=== PATIENT | female | born 1930 | race Caucasian/White ===

== ENCOUNTER 2017-04-19 12:26 | Inpatient (IN) | payer MEDICARE ==
[2017-04-19 13:01] LABS: #Eosinphils 0.2 thou/uL (0.0-0.7); #Lymphocytes 1.1 thou/uL (1.20-3.40); #Monocytes 0.7 thou/uL (0.11-0.59); #Neutrophils 3.7 thou/uL (1.40-6.50); %Basophils 0.2 % (0.0-1.0); %Eosinophils 3.5 % (0.0-10.0); %Lymphocytes 19.7 % (21.0-51.0); %Monocytes 12.3 % (0.0-10.0); Hematocrit 41.1 % (36.0-47.0); Mean Platelet Volume 6.7 fL (7.4-10.4); Red Blood Cell (RBC) Count 4.35 mill/uL (4.20-5.40); White Blood Cell (WBC) Count 5.7 thou/uL (4.8-10.8)
--- NOTE | 2017-04-19 13:07 | RAD ---
AP VIEW CHEST: INDICATIONS: History of atrial fibrillation, hypertension, and CHF, now with cough. COMPARISON: 08/31/2016 FINDINGS: There is moderate cardiomegaly. The pulmonary vasculature is normal. No air space consolidation or pleural effusion is evident. Chronic osseous changes are similar. IMPRESSION: Stable cardiomegaly. POS: [facility]
[2017-04-19 13:35] LABS: Troponin I Less than 0.010 ng/mL (< 0.028)
[2017-04-19 13:40] LABS: ALT (SGPT) 12 U/L (8-55); AST (SGOT) 18 U/L (5-34); Alkaline Phosphatase 100 U/L (40-150); Anion Gap 11 mmol/L (10-20); BUN (Urea Nitrogen) 14 mg/dL (9.8-20.1); Bilirubin, Total 0.7 mg/dL (0.2-1.2); CK (CPK) 80 U/L (29-168); Calc. Creatinine Clearance 0 mL/min (70-130); Calcium 9.4 mg/dL (7.8-10.44); Carbon Dioxide 26 mmol/L (23-31); Chloride 99 mmol/L (98-107); Estimated GFR-MDRD 57; Globulin 3.2 g/dL (2.4-3.5); Lipase 27 U/L (8-78); Protein, Total 7.2 g/dL (6.0-8.3)
[2017-04-19] MEDS ORDERED: Bisacodyl 5 MG TAB PO PRN (16:03)
[2017-04-19] MEDS ORDERED: Ondansetron HCl/PF 4 MG/2 ML Vial IVP PRN (16:03)
[2017-04-19] MEDS ORDERED: Acetaminophen 325 MG TAB PO PRN (16:03)
--- NOTE | 2017-04-19 16:04 | HP ---
CHIEF COMPLAINT: Palpitations. HISTORY OF PRESENT ILLNESS: This is an 86-year-old pleasant lady, who was apparently in usual state of health, who came into the hospital because of a racing heartbeat. The patient reports that afte r she took her morning medications, her heart rate heart began to race and the EMS reported highest heart rate of 150. She reports she got dizzy and denies any shortness of breath. Here in the ER, h er heart rate goes up and is jumping between 140s, gives some PVCs and then gets sinus joe and the n goes up again. She has been admitted for evaluation and treatment of this. She is a patient of Fortino Baez, who was cardioverted her on 02/11/2017. Right now, she denies any chest pain or short ness of breath. PAST MEDICAL HISTORY: Significant for atrial fibrillation, congestive heart failure, GERD, migraine headaches, glaucoma and history of esophageal tear. PAST SURGICAL HISTORY: The patient's surgical history significant for bilateral knee replacements, hemorrhoidectomy, craniectomy, neurectomy, appendectomy, cholecystectomy, , hysterectomy, c ardiac ablation in 10/2015 and cardioversion earlier this year. SOCIAL HISTORY: Denies alcohol, tobacco or drug use. PSYCHIATRIC HISTORY: Includes anxiety and depression. FAMILY HISTORY: Significant for myocardial infarction in mother. ALLERGIES: CODEINE, DEMEROL, DEMECLOCYCLINE, MEPERIDINE, PENICILLIN, SULFA, and TRIAMTERENE. CURRENT MEDICATIONS: Include Protonix, buspirone, Ambien, Eliquis, losartan, metoprolol, amlodipine and some eyedrops for glaucoma. REVIEW OF SYSTEMS: Significant for dizziness and palpitations, otherwise no fever, no chills, no he adache, no eye pain, no hearing loss, no latencies. No cough, no diarrhea, dysuria or polyuria. No memory or mood changes. No neck pain. PHYSICAL EXAMINATION: VITAL SIGNS: The patient's blood pressure is 153/70, pulse is 52, respirations 16, temperature 98.6 . GENERAL: The patient is lying in bed, in no apparent respiratory distress. HEENT: Atraumatic, normocephalic. Pupils equally round, react to light. Extraocular movements are intact. Mucous membranes moist. NECK: Supple. No JVD. CHEST: Breath sounds. There are no rales or rhonchi. HEART: S1, S2 normal, irregularly irregular rhythm. ABDOMEN: Soft, nontender. EXTREMITIES: No cyanosis, clubbing, or edema. Distal pulses present. NEUROLOGIC: Alert, awake, oriented. No cranial deficits. No sensorimotor deficits. SKIN: Warm and dry. LABORATORY DATA: Lipase is 27, CK is 80. Sodium is 132, potassium is 4.1, creatinine is 0.94, gluc ose is 96, and bilirubin is 0.7. BNP is 186.8. Troponin is negative. Chest x-ray shows cardiomega ly without acute changes. ASSESSMENT AND PLAN: 1. Atrial fibrillation with rapid ventricular response. Cardiology has been consulted. We will re sume home medications and Eliquis 5 mg p.o. b.i.d. for now. We will admit the patient to telemetry and monitor her heartbeat. We will follow Cardiology plan and trend troponins. 2. Hyponatremia. We will monitor that this hospital stay. 3. Gastroesophageal reflux disease, appears to be stable. 4. Hypertension. We will continue home medications. 5. Deep thrombosis prophylaxis with Eliquis and sequential compression devices. I will work with Cardiology and further caring for the patient.
[2017-04-19 17:08] LABS: Bilirubin Negative (Negative); Blood, Urine Trace (Negative); Glucose, Urine (Dipstick) Negative (Negative); Ketone, Urine Negative (Negative); Nitrite Negative (Negative); Protein, Urine (Dipstick) Negative (Neg-Trace); Urobilinogen 0.2 mg/dL (0.2-1.0)
[2017-04-19 17:13] LABS: Bacteria/HPF None Seen HPF (None Seen); Hyaline Casts/LPF 0-3 HYALINE CAST LPF (0-3 Hyaline); RBC/HPF 0-3 HPF (0-3); Squamous Epithelial None Seen HPF (0-3); WBC/HPF None Seen HPF (0-3)
[2017-04-19] MEDS ORDERED: Zolpidem Tartrate 5 MG TAB PO PRN (18:22)
[2017-04-19] MEDS ORDERED: ALPRAZolam 0.25 MG TAB PO PRN (18:22)
[2017-04-19] MEDS ORDERED: Famotidine 20 MG TAB PO SCH (21:00)
[2017-04-19] MEDS ORDERED: Dronedarone HCl 400 MG TAB PO SCH (21:00)
[2017-04-19] MEDS ORDERED: Apixaban 5 MG TAB PO SCH (21:00)
[2017-04-19] MEDS: Apixaban 5 MG TAB PO SCH (21:17)
[2017-04-19] MEDS: Docusate 100 MG CAP PO SCH (21:19)
[2017-04-19] MEDS: busPIRone HCl 10 MG TAB PO SCH (21:19)
--- NOTE | 2017-04-19 23:19 | CON ---
DATE OF CONSULTATION: 04/19/2017 HISTORY: Ariella Parmar is an 86-year-old white female with history of paroxysmal atrial fibrillation. She states that she has undergone ablation in the past. She underwent cardioversion in 09/2016; however, did not convert. She also underwent electrical cardioversion on 02/11/2017, converted to sinus rhythm. She was seen back in the office on 02/24/2017 and apparently continued to maintain sinus rhythm. She lives at [facility] in [place]. States she had onset of a very rapid heartbeat with some shortness of breath. EMS were called and she was brought directly to [place]. In the emergency room, she would have episodes of atrial fibrillation that would convert back to sinus rhythm. At the present time, she is in atrial fibrillation with rate of approximately 120 per minute. She is extremely nervous and anxious. PAST MEDICAL HISTORY: Atrial fibrillation, GERD, congestive heart failure. OPERATIONS: Include ablation in 10/2015, bilateral knee replacements, hemorrhoidectomy, appendectomy, cholecystectomy, , hysterectomy. SOCIAL HISTORY: She does not smoke or drink. REVIEW OF SYSTEMS: A 12-point review of systems otherwise unremarkable. PHYSICAL EXAMINATION: VITAL SIGNS: Blood pressure 170/73, pulse of 112. HEENT: PERRL. NECK: Supple. CHEST: Clear. CARDIAC: S1 and S2 are normal without any S3, S4 or murmurs. ABDOMEN: Normal bowel sounds without tenderness or organomegaly. EXTREMITIES: Revealed no clubbing, cyanosis or edema. NEUROLOGIC: Grossly intact. LABORATORY DATA: EKG show sinus rhythm, atrial fibrillation, converting back to sinus rhythm on one of the EKGs. CBC is unremarkable. Sodium 132, potassium 4.1, chloride 99, carbon dioxide 26, BUN 14, creatinine 0.94. Cardiac enzymes are unremarkable. BNP 186.8. Urinalysis is unremarkable. IMPRESSION: 1. Atrial fibrillation with rapid ventricular response. In the computer, it states that she is taking Multaq 800 mg b.i.d.; however, the patient states she takes a total of 800 per day, i.e. 400 b.i.d. This order will be corrected. 2. Hyponatremia. 3. History of heart failure. 4. Gastroesophageal reflux disease. 5. Hypertension. PLAN: The patient will be placed back on Multaq 400 mg b.i.d. She will be started on intravenous Cardizem given 10 mg bolus followed by 5 mg per hour drip to control her rate. Also, with her age of 86 and her weight of 120, I would keep her Eliquis 2.5 b.i.d. Electrophysiology will be consulted in the morning and she certainly may need to undergo pacemaker placement and AV node ablation if she cannot be controlled otherwise. KANED
[2017-04-20 05:34] LABS: #Eosinphils 0.2 thou/uL (0.0-0.7); #Lymphocytes 1.1 thou/uL (1.20-3.40); #Monocytes 0.7 thou/uL (0.11-0.59); #Neutrophils 3.1 thou/uL (1.40-6.50); %Basophils 0.5 % (0.0-1.0); %Eosinophils 4.8 % (0.0-10.0); %Lymphocytes 20.8 % (21.0-51.0); Hematocrit 37.8 % (36.0-47.0); Mean Platelet Volume 6.8 fL (7.4-10.4); Red Blood Cell (RBC) Count 4.01 mill/uL (4.20-5.40); White Blood Cell (WBC) Count 5.1 thou/uL (4.8-10.8)
[2017-04-20 05:48] LABS: Anion Gap 10 mmol/L (10-20); BUN (Urea Nitrogen) 13 mg/dL (9.8-20.1); Calc. Creatinine Clearance 45 mL/min (70-130); Calcium 8.9 mg/dL (7.8-10.44); Carbon Dioxide 26 mmol/L (23-31); Chloride 101 mmol/L (98-107); Estimated GFR-MDRD 67
[2017-04-20 08:39] LABS: Magnesium 1.9 mg/dL (1.6-2.6); Phosphorus 3.8 mg/dL (2.3-4.7)
[2017-04-20] MEDS: Apixaban 5 MG TAB PO SCH (10:31)
[2017-04-20] MEDS: Losartan Potassium 25 MG TAB PO SCH (10:31)
[2017-04-20] MEDS: busPIRone HCl 10 MG TAB PO SCH ×2 (10:32→21:25)
[2017-04-20] MEDS: Docusate 100 MG CAP PO SCH (10:32)
[2017-04-20] MEDS: Dronedarone HCl 400 MG TAB PO SCH ×2 (10:32→16:51)
--- NOTE | 2017-04-20 18:44 | PDOC.PN ---
- Subjective Encounter Start Date: 04/20/17 Encounter Start Time: 10:30 Patient seen and examined. No new complaints. No overnight events - Objective MAR Reviewed: Yes Vital Signs & Weight: Vital Signs (12 hours) Temp Pulse Resp BP Pulse Ox 04/20/17 16:00 98.2 F 65 18 172/75 H 04/20/17 08:00 98.1 F 65 17 164/70 H 93 L I&O: 04/19/17 04/20/17 04/21/17 06:59 06:59 06:59 Intake Total 240 Balance 240 Result Diagrams: 04/20/17 05:19 04/20/17 05:19 EKG Reviewed by me: Yes (Tele SR) Phys Exam - Physical Examination Constitutional: NAD Respiratory: no wheezing, no rhonchi Cardiovascular: RRR, no rub Gastrointestinal: soft Musculoskeletal: no edema Neurological: moves all 4 limbs Dx/Plan (1) Atrial fibrillation with RVR Code(s): I48.91 - UNSPECIFIED ATRIAL FIBRILLATION Status: Acute (2) Hyponatremia Code(s): E87.1 - HYPO-OSMOLALITY AND HYPONATREMIA Status: Acute (3) CKD (chronic kidney disease) stage 2, GFR 60-89 ml/min Code(s): N18.2 - CHRONIC KIDNEY DISEASE, STAGE 2 (MILD) Status: Acute (4) GERD (gastroesophageal reflux disease) Code(s): K21.9 - GASTRO-ESOPHAGEAL REFLUX DISEASE WITHOUT ESOPHAGITIS Status: Chronic - Plan cont current plan of care, DVT proph w/SCDs * Cardiology/EP following * Pacemaker placement * On Multaq * Eliquis dose reduced * Cont to monitor * Off Cardizem drip Review of Systems - Review of Systems Constitutional: negative: Fever, Chills, Sweats, Weakness, Malaise, Other Respiratory: negative: Cough, Dry, Shortness of Breath, Hemoptysis, SOB with Excertion, Pleuritic Pain, Sputum, Wheezing Cardiovascular: negative: Chest Pain, Palpitations, Orthopnea, Paroxysmal Noc. Dyspnea, Edema, Light Headedness, Other Gastrointestinal: negative: Nausea, Vomiting, Abdominal Pain, Diarrhea, Constipation, Melena, Hematochezia, Other - Medications/Allergies Allergies/Adverse Reactions: Allergies Allergy/AdvReac Type Severity Reaction Status Date / Time codeine Allergy Verified 02/05/17 12:36 doxycycline Allergy Verified 02/05/17 12:36 ibuprofen [From Motrin] Allergy Verified 02/05/17 12:36 meperidine HCl [From Demerol] Allergy Verified 04/19/17 16:18 Penicillins Allergy Verified 02/05/17 12:36 Sulfa (Sulfonamide Allergy Verified 02/05/17 12:36 Antibiotics) sulfamethoxazole Allergy Verified 02/05/17 12:36 [From Bactrim] triamterene Allergy Verified 02/05/17 12:36 trimethoprim [From Bactrim] Allergy Verified 02/05/17 12:36 Medications: Current Medications Acetaminophen (Tylenol) 650 mg PO Q4H PRN PRN Reason: Headache/Fever or Pain Bisacodyl (Dulcolax) 10 mg PO DAILYPRN PRN PRN Reason: Constipation Buspirone HCl (Buspar) 5 mg PO BID [facility] Last Admin: 04/20/17 10:32 Dose: 5 mg Diltiazem HCl (Cardizem) 30 mg PO Q6H PRN PRN Reason: HR >120 sustained Dronedarone (Multaq) 400 mg PO BID-[facility] Last Admin: 04/20/17 16:51 Dose: 400 mg Hydralazine HCl (Apresoline) 10 mg SLOW IVP Q4H PRN PRN Reason: Systolic BP > 180 Last Admin: 04/19/17 16:42 Dose: 10 mg Losartan Potassium (Cozaar) 50 mg PO DAILY [facility] Last Admin: 04/20/17 10:31 Dose: 50 mg Metoprolol Succinate (Toprol Xl) 25 mg PO DAILY [facility] Last Admin: 04/20/17 10:31 Dose: 25 mg Ondansetron HCl (Zofran) 4 mg IVP Q6H PRN PRN Reason: Nausea/Vomiting Pantoprazole Sodium (Protonix) 40 mg PO DAILY [facility] Last Admin: 04/20/17 10:35 Dose: Not Given Sodium Chloride (Flush - Normal Saline) 10 ml IVF Q12HR [facility] Last Admin: 04/20/17 10:35 Dose: 10 ml Sodium Chloride (Flush - Normal Saline) 10 ml IVF PRN PRN PRN Reason: Saline Flush Zolpidem Tartrate (Ambien) 5 mg PO HS [facility]
[2017-04-20] MEDS: Zolpidem Tartrate 5 MG TAB PO SCH (21:26)
[2017-04-21 07:03] VITALS: BMI 21.0
[2017-04-21] MEDS ORDERED: cloNIDine HCl 0.1 MG TAB PO PRN (08:32)
[2017-04-21] MEDS: Losartan Potassium 25 MG TAB PO SCH (10:00)
[2017-04-21] MEDS: busPIRone HCl 10 MG TAB PO SCH ×2 (10:00→22:10)
[2017-04-21] MEDS: Dronedarone HCl 400 MG TAB PO SCH ×2 (10:00→16:39)
[2017-04-21] MEDS ORDERED: Iopamidol 370 76% 50 ML VIAL FS ONE (11:55)
--- NOTE | 2017-04-21 12:49 | PDOC.PN ---
- Subjective Encounter Start Date: 04/21/17 Encounter Start Time: 09:30 Patient seen and examined. No new complaints. No overnight events - Objective MAR Reviewed: Yes Vital Signs & Weight: Vital Signs (12 hours) Temp Pulse Resp BP Pulse Ox 04/21/17 11:30 98.4 F 76 20 170/82 H 98 04/21/17 08:08 98.3 F 78 19 162/73 H 97 04/21/17 04:00 98.3 F 74 16 165/73 H 95 Weight Weight 119 lb I&O: 04/20/17 04/21/17 04/22/17 06:59 06:59 06:59 Intake Total 240 1100 Output Total 1250 Balance 240 -150 Result Diagrams: 04/20/17 05:19 04/20/17 05:19 EKG Reviewed by me: Yes (Tele SR) Phys Exam - Physical Examination Constitutional: NAD Respiratory: no wheezing, no rhonchi Cardiovascular: RRR, no rub Gastrointestinal: soft, non-tender, positive bowel sounds Musculoskeletal: no edema Neurological: moves all 4 limbs Psychiatric: A&O x 3 Dx/Plan (1) Atrial fibrillation with RVR Code(s): I48.91 - UNSPECIFIED ATRIAL FIBRILLATION Status: Acute (2) Hyponatremia Code(s): E87.1 - HYPO-OSMOLALITY AND HYPONATREMIA Status: Acute (3) CKD (chronic kidney disease) stage 2, GFR 60-89 ml/min Code(s): N18.2 - CHRONIC KIDNEY DISEASE, STAGE 2 (MILD) Status: Acute (4) GERD (gastroesophageal reflux disease) Code(s): K21.9 - GASTRO-ESOPHAGEAL REFLUX DISEASE WITHOUT ESOPHAGITIS Status: Chronic - Plan cont current plan of care * Pacemaker today * Cont to monitor * Can dc later today if ok with Cardiology * Cont current meds as below * On Anticoag/Multaq * Resume Amlodipine Review of Systems - Review of Systems Respiratory: negative: Cough, Dry, Shortness of Breath, Hemoptysis, SOB with Excertion, Pleuritic Pain, Sputum, Wheezing Cardiovascular: negative: Chest Pain, Palpitations, Orthopnea, Paroxysmal Noc. Dyspnea, Edema, Light Headedness, Other Gastrointestinal: negative: Nausea, Vomiting, Abdominal Pain, Diarrhea, Constipation, Melena, Hematochezia, Other - Medications/Allergies Allergies/Adverse Reactions: Allergies Allergy/AdvReac Type Severity Reaction Status Date / Time codeine Allergy Verified 02/05/17 12:36 doxycycline Allergy Verified 02/05/17 12:36 ibuprofen [From Motrin] Allergy Verified 02/05/17 12:36 meperidine HCl [From Demerol] Allergy Verified 04/19/17 16:18 Penicillins Allergy Verified 02/05/17 12:36 Sulfa (Sulfonamide Allergy Verified 02/05/17 12:36 Antibiotics) sulfamethoxazole Allergy Verified 02/05/17 12:36 [From Bactrim] triamterene Allergy Verified 02/05/17 12:36 trimethoprim [From Bactrim] Allergy Verified 02/05/17 12:36 hydralazine Allergy Uncoded 04/21/17 08:20 Medications: Current Medications Acetaminophen (Tylenol) 650 mg PO Q4H PRN PRN Reason: Headache/Fever or Pain Bisacodyl (Dulcolax) 10 mg PO DAILYPRN PRN PRN Reason: Constipation Buspirone HCl (Buspar) 5 mg PO BID [facility] Last Admin: 04/21/17 10:00 Dose: 5 mg Cefazolin Sodium (Ancef) 2 gm SLOW IVP WILLCALL [facility] Stop: 04/21/17 16:00 Clonidine HCl (Catapres) 0.1 mg PO Q4H PRN PRN Reason: Systolic BP > 180 Diltiazem HCl (Cardizem) 30 mg PO Q6H PRN PRN Reason: HR >120 sustained Dronedarone (Multaq) 400 mg PO BID-[facility] Last Admin: 04/21/17 10:00 Dose: 400 mg Losartan Potassium (Cozaar) 50 mg PO DAILY [facility] Last Admin: 04/21/17 10:00 Dose: 50 mg Metoprolol Succinate (Toprol Xl) 25 mg PO DAILY [facility] Last Admin: 04/21/17 10:00 Dose: 25 mg Ondansetron HCl (Zofran) 4 mg IVP Q6H PRN PRN Reason: Nausea/Vomiting Pantoprazole Sodium (Protonix) 40 mg PO DAILY [facility] Last Admin: 04/21/17 10:00 Dose: 40 mg Sodium Chloride (Flush - Normal Saline) 10 ml IVF Q12HR [facility] Last Admin: 04/21/17 10:00 Dose: 10 ml Sodium Chloride (Flush - Normal Saline) 10 ml IVF PRN PRN PRN Reason: Saline Flush Zolpidem Tartrate (Ambien) 5 mg PO HS [facility] Last Admin: 04/20/17 21:26 Dose: 5 mg
[2017-04-21] MEDS ORDERED: Clindamycin/D5W 600 mg/50 ml Premix Bag ONE (13:38)
[2017-04-21] MEDS ORDERED: Levofloxacin 500 mg/D5W 100 ml Premix Bag ONE (13:38)
[2017-04-21] MEDS ORDERED: Fentanyl 100 MCG/2 ML VIAL ONE (14:09)
[2017-04-21] MEDS ORDERED: Lidocaine 1% (PF) 30 ML VIAL ONE (14:13)
[2017-04-21] MEDS ORDERED: HYDROcodone/Acetaminophen 5/325 mg Tablet PO PRN ×2 (20:30)
[2017-04-21] MEDS ORDERED: Acetaminophen/Codeine 30-300mg Tablet PO PRN ×2 (20:30)
--- NOTE | 2017-04-21 21:30 | PRG ---
DATE OF SERVICE: 04/21/2017 ELECTROPHYSIOLOGY FOLLOWUP NOTE REFERRING PHYSICIAN: Joby Baez M.D. SUBJECTIVE: Mrs. Parmar is doing fair today. She still has occasional palpitation. OBJECTIVE: VITAL SIGNS: Blood pressure is 164/70, heart rate 65, respirations 17, and temperature 98.1 degrees Fahrenheit. GENERAL: Alert and oriented woman, in no apparent distress. NECK: Supple. Jugular veins not distended. CHEST: Coarse without crackles. CARDIOVASCULAR: Heart sounds are regular to rate and rhythm. No murmur or gallop. ABDOMEN: Benign. Bowel sounds positive. EXTREMITIES: Lower extremities without edema, clubbing or cyanosis. DATABASE: Telemetry strips today reveals sinus rhythm with occasional PAT runs. LABORATORY DATA: No new laboratory data noted. ASSESSMENT AND PLAN: Mrs. Parmar is a pleasant 86-year-old woman with prior history of atrial fibri llation, repeat left atrial ablation procedures, currently on anticoagulation. At this point, she d eclines further advance ablations and considers a pacemaker implantation. We will implant and advic e pacemaker for her and we will increase her atrioventricular wiliam blocking agents afterwards. ___ __ after pacemaker maturation, we will plan to . If that fails to control her symptoms, we wi ll perform the atrioventricular wiliam ablation. For now, continue Dontataq as well.
--- NOTE | 2017-04-21 21:45 | CON ---
DATE OF CONSULTATION: 04/20/2017 ELECTROPHYSIOLOGY CONSULTATION REPORT REFERRING PHYSICIAN: Dr. Baez I am seeing Mr. Parmar at our [facility] as an electrophysiology independent crop consultant. Her problems are: 1. Recurrent atrial arrhythmias. A. Prior history of left atrial ablation, most recently 10/2015. B. Recurrent atrial fibrillation requiring Multaq initiation and recurrent atrial tachycardia despit e from the current admission. 2. Eliquis for cerebrovascular accident prophylaxis. 3. History of hypertension. 4. History of normal LVEF by echo in 10/2015 with LVEF 50-55%, moderate mitral regurgitation and ao rtic insufficiency. ALLERGIES: CODEINE, DOYCYCLINE, IBUPROFEN, MEPERIDINE, PENICILLINS. MEDICATIONS AT HOME: Included buspirone, pantoprazole, zolpidem, Tylenol, apixaban, metoprolol, aml odipine, losartan, dronedarone, potassium chloride. HISTORY OF PRESENT ILLNESS: Ms. Parmar is here due to recurrent palpitations. She was found to hav e shortness of breath. She was noted to have atrial fibrillation with rapid rate, but paroxysms onl y and then she converted back to sinus rhythm intermittently. She was nervous and anxious with this . Currently, she denies chest pain, no fever, chills or cough. No stroke-like symptoms. No neurologi laly deficits. No PND or orthopnea. REVIEW OF SYSTEMS: Rest of 12-point system is unremarkable. PHYSICAL EXAMINATION: VITAL SIGNS: Blood pressure is 164/70, heart rate 65, respirations 17, temperature 98.1 degrees Fah renheit. GENERAL: Alert and oriented woman in no apparent distress. NECK: Supple. Jugular veins not distended. CHEST: Coarse without crackles. CARDIOVASCULAR: Heart sounds are irregular. S1 and S2 are variable. No murmur or gallop. ABDOMEN: Benign. Bowel sounds positive. EXTREMITIES: Lower extremities without edema, clubbing or cyanosis. DATABASE: EKGs reviewed. Initial EKGs reveal runs of PAC's, atrial tachycardia runs are seen, ensu ring sinus beats or so noted. Subsequent EKG on 04/19 is with sinus rhythm with normal AV conductio n. QTC is 440 milliseconds. EKG just 20 minutes later PATs. LABORATORY DATA: White blood cell count 5.1, hemoglobin 12.5, platelet count is 198. Sodium 133, p otassium 3.5, BUN is 13, creatinine 0.81. AST, ALT is 18 and 12. BNP is 186. ASSESSMENT AND PLAN: Ms. Parmar is an 86-year-old woman with prior history of left atrial ablation procedures. She underwent pulmonary venous isolation procedure and left atrial ablation procedure _ ____ in 10/2015. She had recurrent episodes of atrial tachyarrhythmias and we increased her Multaq recently. Despite she came to the ER with palpitations. She currently well anticoagulated with Maryann eric. Her rhythm is again sinus rhythm and runs of PATs. We discussed the potential treatment options. Options include repeated ablation was . At thi s point, this lady would like to have no further left atrial ablation procedures and would like to p roceed with possibly pacing with AV wiliam ablation in the future. I discussed the risk and benefits of pacing. She has a tendency for bradycardia on the Multaq and additional negative chronotropic a gents. If she has a pacemaker we could potentially able to lower her able to use increasing AV wiliam blocking agents. If that is not successful even ablation can be cut down. For now, contin ue the Eliquis therapy. 1. Risk of the pacemaker implantation including bleeding, infection, tamponade, pneumothorax, lead dislodgement, device malfunction were discussed. She is willing to proceed with scheduling her for near date. 2. Continue dronedarone and possibly consider switching to diltiazem as well after the pacemaker im plant from amlodipine. 3. Resume anticoagulation. 4. Consider atrial ATP therapies in the future. Thank you again for allowing me to participate in the care of this patient.
[2017-04-21] MEDS: Zolpidem Tartrate 5 MG TAB PO SCH (22:09)
[2017-04-21] MEDS: Cephalexin 250 MG CAP PO SCH (22:09)
[2017-04-22] MEDS ORDERED: Apixaban 5 MG TAB PO SCH (09:00)
--- NOTE | 2017-04-22 09:03 | RAD ---
PORTABLE CHEST 1 VIEW: Date: 04/22/17 Time: 0712 hours HISTORY: Pacemaker insertion yesterday, atrial fibrillation, hypertension, and CHF. FINDINGS: Comparison made with exam of 04/19/17. The heart size is borderline. The aorta is tortuous. There has been interval placement of a left-gabbie ed pacemaker device with bipolar leads. No focal areas of consolidation, pneumothoraces, celia pulmo nary edema, or pleural effusions are seen. IMPRESSION: No acute process. POS: [facility]
[2017-04-22] MEDS: Losartan Potassium 25 MG TAB PO SCH (09:37)
[2017-04-22] MEDS: Cephalexin 250 MG CAP PO SCH (09:39)
[2017-04-22] MEDS: Dronedarone HCl 400 MG TAB PO SCH (09:39)
[2017-04-22] MEDS: busPIRone HCl 10 MG TAB PO SCH (09:40)
--- NOTE | 2017-04-22 09:48 | DIS ---
DISCHARGE DISPOSITION: Home. FOLLOWUP: Follow up with primary care physician, Rosanna Arroyo in 1 week. Follow up with Cardiolo gy, Dr. Baez, and Electrophysiology, Dr. Joaquin in 1-2 weeks. DISCHARGE MEDICATIONS: 1. Keflex 250 mg 3 times daily for the next week. 2. Eliquis 2.5 mg b.i.d.. 3. Amlodipine 5 mg daily. 4. Tylenol as needed. 5. Multaq 400 mg b.i.d. 6. Cozaar 50 mg daily. 7. Toprol XL 25 mg daily. 8. Protonix 40 mg daily. 9. Potassium chloride 20 mEq daily. 10. Ambien 5 mg at bedtime. 11. Buspirone 5 mg b.i.d. INPATIENT CONSULTANTS: Cardiology, Dr. Baez; Electrophysiology, Dr. Joaquin. BRIEF HOSPITAL COURSE: The patient is an 86-year-old female with atrial fibrillation who presented to the hospital with palpitations. Please refer to the history and physical for further details. The patient was admitted to the hospital with a diagnosis of atrial fibrillation with rapid ventricu lar response. She was started on Cardizem drip. She was seen by Cardiology and Electrophysiology. Anticoagulation was continued. The patient currently takes 2.5 mg Eliquis b.i.d. at home. She und erwent pacemaker implantation 04/21/2017. She appears stable for discharge. The patient has been c leared by Cardiology and Electrophysiology for discharge. FINAL DIAGNOSES: 1. Atrial fibrillation with rapid ventricular response. 2. Status post pacemaker placement this admission due to tendency for bradycardia while on Multaq a nd beta blockers. 3. Hyponatremia. Sodium at discharge was 133. Repeat labs after 1-2 weeks is recommended. [facility] physician is advised to follow. 4. Chronic kidney disease stage 2. 5. Chronic diastolic heart failure. Her last ejection fraction was 50-55%. 6. Moderate mitral regurgitation. 7. Moderate aortic insufficiency. 8. Gastroesophageal reflux disease. 9. Hypertension. 10. Chronic insomnia. 11. Anxiety. Plan of care was discussed with the patient. She stated understanding.
--- NOTE | 2017-04-22 12:05 | PDOC.CTH ---
Cardiology Progress Note - Subjective Doing well. NO complaints - Objective Vital Signs Temp Pulse Resp BP BP BP Pulse Ox 04/22/17 11:10 98.6 F 72 16 150/66 H 04/22/17 09:39 70 185/78 H 04/22/17 07:45 98.5 F 70 18 184/78 H 93 L 04/22/17 04:00 99.1 F 69 18 154/88 H 95 Weight 119 lb 04/21/17 04/22/17 04/23/17 06:59 06:59 06:59 Intake Total 1100 720 Output Total 1250 Balance -150 720 - Physical Examination General/Neuro: alert & oriented x3, NAD Neck: carotid US brisk, no JVD present Lungs: CTA Heart: PMI normal, RRR Abdomen: no HSM, soft Extremities: + femoral B - Labs Result Diagrams: 04/20/17 05:19 04/20/17 05:19 Troponin/CKMB CK-MB (CK-2) 2.0 ng/mL (0-6.6) 04/19/17 12:52 Troponin I Less than 0.010 ng/mL (< 0.028) 04/19/17 12:52 - Assessment/Plan 1. SSS 2. afib 3. s/p pacer Pt doing well. Routine pacer fu. Resume ACT tomorrow. ok for dc from cv standpoint with close outpt fu
[2017-04-22 12:35] VITALS: BP 139/63; TEMP 98.1
--- NOTE | 2017-04-22 20:53 | PRG ---
DATE OF SERVICE: 04/22/2017 SUBJECTIVE: Ms. Parmar seems to be doing really well one day after her pacemaker implant. She stil l has minimal palpitations. OBJECTIVE: VITAL SIGNS: Blood pressure this morning is 184/78, heart rate 18, respirations 17, temperature 98. 5 degrees Fahrenheit. GENERAL: Alert and oriented elderly woman in no apparent distress. NECK: Supple. Jugular veins not distended. CHEST: Coarse without crackles. CARDIOVASCULAR: Heart sounds are regular to rate and rhythm. No murmur or gallop. Left precordial pacemaker insertion site is without reaction, edges approximated. ABDOMEN: Benign, bowel sounds positive. EXTREMITIES: Lower extremities without edema, clubbing or cyanosis. DATABASE: Chest x-ray is reviewed from this morning reveals no acute process, no pneumothorax, appr opriate lead placement projected. Interrogation of her device reveals a veriCAR Advisa DR MRI compatible dual chamber pacemaker bertin funmilayo voltage 3.09 volt, beggining of life, impedance 437 ohms in atrium and 627 ohms in the right alex tricle. Sensing at 3.3 millivolts in right atrium were 20 millivolts in right ventricle. Capture t hreshold 0.75 volts at 0.4 milliseconds, 0.5 volts at 0.4 milliseconds respectively. ASSESSMENT AND PLAN: Ms. Parmar is a pleasant 86-year-old woman with prior history of atrial arrhyt hmias with the repeat left atrial ablation procedures in the past. She had recurrent atrial flutter /atrial tachycardia for which we started Multaq despite she had recurrent palpitations and she prese nted in the hospital for that. She required further AV wiliam blocking agents. Eventually, we agree d to proceed with the pacemaker placement, hence bradycardic tendency and the potential need for fur ther atrial ATP therapy as well as potential AV wiliam ablation as well in the future. She underwent the procedure yesterday without issues, currently continues on Multaq and diltiazem for rhythm/rate control. PLAN: 1. Our plan is to have routine postop care. We will consider turning atrial antiarrythmic pacing t herapies on in about a month post-implant. If these measures fail to control her heart rates and sy mptoms, she might be considered for AV wiliam ablation after complete maturation of the pacemaker in place. 2. Resume oral anticoagulation with reduced dose of Eliquis 2.5 mg twice a day. 3. Up titrate diltiazem on as necessary for adequate rate control.
== END 2017-04-22 13:18 | disposition home or self-care (01) | DRG 243 ==
LOC: ERS 12:26 → 2SW 14:21 → OBSVTOIN 16:03 → 2NO 17:51
PROVIDERS: ADMIT Internal Medicine; ATTEND Internal Medicine
PROC: 0JH604Z Insertion of Pacemaker, Single Chamber into Chest Subcutaneous Tissue and Fascia, Open Approach (ICD-10-PCS; principal; 2017-04-21)
PROC: 02H63JZ Insertion of Pacemaker Lead into Right Atrium, Percutaneous Approach (ICD-10-PCS; 2017-04-21)
PROC: 02HK3JZ Insertion of Pacemaker Lead into Right Ventricle, Percutaneous Approach (ICD-10-PCS; 2017-04-21)
DX: I48.0 Paroxysmal atrial fibrillation (principal); E87.1 Hypo-osmolality and hyponatremia; I13.0 Hypertensive heart and chronic kidney disease with heart failure and stage 1 through stage 4 chronic kidney disease, or unspecified chronic kidney disease; I50.32 Chronic diastolic (congestive) heart failure; N18.2 Chronic kidney disease, stage 2 (mild); F51.04 Psychophysiologic insomnia; K21.9 Gastro-esophageal reflux disease without esophagitis; I08.0 Rheumatic disorders of both mitral and aortic valves; F41.9 Anxiety disorder, unspecified; Z88.0 Allergy status to penicillin; Z88.1 Allergy status to other antibiotic agents; Z88.5 Allergy status to narcotic agent; Z88.2 Allergy status to sulfonamides; Z88.8 Allergy status to other drugs, medicaments and biological substances; Z96.653 Presence of artificial knee joint, bilateral
CPT/HCPCS: 33208; 36005; 36415; 71010; 75820; 80048; 80053; 81001; 82550; 82553; 83690; 83735; 83880; 84100; 84484; 85025; 93005; 93010; A4216; C1785; C1898; J0360; J1956; J2001; J3010; J3490; J7050

== ENCOUNTER 2020-05-05 12:11 | Inpatient (IN) | payer MEDICARE, OTHER ==
[2020-05-05] MEDS ORDERED: Ondansetron PF 4 MG/2 ML Vial ONE (12:22)
[2020-05-05] MEDS ORDERED: Morphine 4 MG/ML VIAL ONE (12:22)
[2020-05-05 12:44] LABS: #Eosinphils 0.3 thou/uL (0.0-0.7); #Lymphocytes 1.3 thou/uL (1.20-3.40); #Monocytes 0.8 thou/uL (0.11-0.59); #Neutrophils 5.2 thou/uL (1.40-6.50); %Basophils 0.5 % (0.0-1.0); %Eosinophils 3.4 % (0.0-10.0); %Lymphocytes 17.6 % (21.0-51.0); %Monocytes 9.9 % (0.0-10.0); %Neutrophils 68.6 % (42.0-75.0); Mean Corpuscular HGB CONC 33.1 g/dL (32.0-36.0); Mean Corpuscular Volume 93.6 fL (78.0-98.0); Mean Platelet Volume 8.8 fL (7.4-10.4); Platelet Count 206 thou/uL (130-400); White Blood Cell (WBC) Count 7.5 thou/uL (4.8-10.8)
[2020-05-05 12:51] LABS: INR-International Normal Ratio 1.3; PTT 36.5 sec (22.9-36.1); Prothrombin Time 16.3 sec (12.0-14.7)
--- NOTE | 2020-05-05 13:03 | RAD ---
XR Pelvis AP STANDARD History: Fall. Pain Comparison: None. Findings: Patient is rotated to the right. No acute displaced fracture or malalignment. No SI joint o r pubic symphyseal widening. Impression: No acute displaced fracture. If patient is acutely unable to bear weight, CT recommended.
--- NOTE | 2020-05-05 13:03 | RAD ---
XR Hip Rt 2-3 View History: Trauma Comparison: None. Findings: Right obturator ring is intact. No acute displaced fracture or malalignment. Advanced degen erative changes of the right hip. Impression: Advanced degenerative change. No acute displaced fracture. If patient is acutely unable t o bear weight, CT recommended.
--- NOTE | 2020-05-05 13:04 | RAD ---
XR Chest 1 View Portable History: Trauma Comparison: Radiograph April 19, 2017 Findings: Heart size is enlarged. Aorta is ectatic. No pneumothorax. No effusion. No acute osseous ab normality. Impression: Cardiomegaly with aortic ectasia. No acute intrathoracic abnormality.
[2020-05-05 13:08] LABS: ALT (SGPT) 24 U/L (8-55); AST (SGOT) 27 U/L (5-34); Albumin 3.7 g/dL (3.4-4.8); Alkaline Phosphatase 138 U/L (40-110); Anion Gap 15 mmol/L (10-20); BUN (Urea Nitrogen) 30 mg/dL (9.8-20.1); Bilirubin, Total 0.9 mg/dL (0.2-1.2); CK (CPK) 99 U/L (29-168); Calc. Creatinine Clearance 0 mL/min (70-130); Calcium 9.1 mg/dL (7.8-10.44); Carbon Dioxide 28 mmol/L (23-31); Chloride 101 mmol/L (98-107); Estimated GFR-MDRD 36; Globulin 2.9 g/dL (2.4-3.5); Glucose 111 mg/dL (83-110); Lipase 44 U/L (8-78); Potassium 3.8 mmol/L (3.5-5.1); Protein, Total 6.6 g/dL (6.0-8.3); Sodium 140 mmol/L (136-145)
--- NOTE | 2020-05-05 13:17 | CT ---
CT HEAD WITHOUT IV CONTRAST COMPARISON: None HISTORY: Unwitnessed fall at a wheelchair. The patient has fallen twice in last 24 hours. Patient is anticoag ulated. Trauma. TECHNIQUE: Axial CT imaging at 5 mm intervals from vertex through skull base without contrast FINDINGS: There is decreased attenuation in the periventricular white matter which is nonspecific but likely re flective of chronic small vessel ischemic changes. Low-density focus is seen in the left thalamus compatible with a lacunar infarction of indeterminate age. There is mild cerebral volume loss. The ventricular system is normal in size, shape, and position for the degree of sulcal atrophy. There is no evidence of an acute cortical infarction, hemorrhage, mass effect, or midline shift. Skull base has a normal CT appearance. Minimal mucosal thickening seen in a few posterior right ethmoidal air cells. There are postoperative changes involving the posterior aspect mastoid portion of the right temporal bone. Mastoid air cells are clear. No depressed calvarial fracture is seen.. IMPRESSION: 1. 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 There is no evidence of an acute cortical i nfarction, and there is otherwise no acute intracranial abnormality demonstrated.. 2. Chronic small vessel ischemic changes and cerebral volume loss.
--- NOTE | 2020-05-05 13:31 | CT ---
EXAM: CT Pelvis WO Con PROVIDED CLINICAL HISTORY: Patient unable to straighten right leg. Injury after fall. COMPARISON: None FINDINGS: There is bilateral hip osteoarthritis. Mild osteoarthritis is seen involving each sacroiliac joint. T here is osteopenia present. Degenerative changes are seen in the visualized lower lumbar spine. No fracture or dislocation is appreciated. There is suggestion of minimal fluid in the region of the rig ht hip joint. Vascular calcifications are seen in the infrarenal abdominal aorta and involving the iliac arteries. Urinary bladder is distended. There is gas in the nondependent portion urinary bladder which could be related to recent catheterization. Clinical correlation is recommended. No evidence of hysterectomy. Moderate amount retained fecal material is seen in the rectum. No free fluid fluid collection is seen in the pelvis. IMPRESSION: 1. Degenerative changes and osteopenia as described above. 2. No acute fracture or dislocation is seen. 3. Nonspecific minimal right hip joint effusion. 4. Gas in the nondependent portion urinary bladder which may related to recent catheterization. Clini laly correlation is recommended.
[2020-05-05] MEDS ORDERED: Aspirin 300 MG Suppository ONE (14:12)
[2020-05-05] MEDS ORDERED: Haloperidol Lactate 5 MG/ML VIAL ONE (14:23)
[2020-05-05] MEDS ORDERED: Acetaminophen 650 MG Suppository PR PRN (15:53)
[2020-05-05] MEDS ORDERED: Bisacodyl 5 MG TAB PO PRN (15:53)
[2020-05-05] MEDS ORDERED: Acetaminophen 325 MG TAB PO PRN (16:33)
--- NOTE | 2020-05-05 17:22 | CT ---
CT OF CERVICAL SPINE PERFORMED WITHOUT CONTRAST ENHANCEMENT: History: Neck pain, Unwitnessed fall out of wheelchair. This exam was inadvertently not sent from earlier today. FINDINGS: The bones are diffusely demineralized. Vertebral bodies maintain normal height. Anterolisthesis of C3 on C4 of approximately 4 mm. Marked disc narrowing at C4-5, C5-6, and C6-7. The facets are in normal alignment. There are prominent degenerative facet changes present. There is some right sided foraminal narrowing at the C3-4 level. Some mild right sided foraminal narr owing at C5-6. No central canal stenosis and no CT evidence of fracture. Lung apices show some jail officer ior interstitial change which may just be on the basis of atelectasis. IMPRESSION: Marked arthritic change of the spine. No CT evidence for fracture. POS: OFF
[2020-05-05] MEDS ORDERED: Sodium Chloride 0.9% 1,000 ML IV SCH (17:45)
[2020-05-05 20:31] LABS: Bacteria/HPF 1+ HPF (None Seen); Bilirubin Negative (Negative); Blood, Urine Negative (Negative); Clarity Turbid (Clear); Glucose, Urine (Dipstick) Normal (Negative); Ketone, Urine Negative (Negative); Leukocyte 250 Leu/uL (Negative); Nitrite Negative (Negative); Protein, Urine (Dipstick) 20 mg/dL (Neg-Trace); RBC/HPF 0-3 HPF (0-3); Specific Gravity, Urine 1.022 (1.002-1.036); Urobilinogen Normal mg/dL (Less than 2)
[2020-05-05 20:47] VITALS: BMI 20.1
[2020-05-06] MEDS: Apixaban 2.5 MG TAB PO SCH ×3 (01:08→22:52)
[2020-05-06] MEDS: Atorvastatin Calcium 20 MG TAB PO SCH ×2 (01:08→22:59)
[2020-05-06] MEDS: busPIRone HCl 5 MG TAB PO SCH ×3 (01:08→22:52)
[2020-05-06 04:46] LABS: #Basophils 0.1 thou/uL (0.0-0.2); #Eosinphils 0.4 thou/uL (0.0-0.7); #Lymphocytes 1.3 thou/uL (1.20-3.40); #Monocytes 0.8 thou/uL (0.11-0.59); #Neutrophils 3.7 thou/uL (1.40-6.50); %Basophils 0.8 % (0.0-1.0); %Eosinophils 6.7 % (0.0-10.0); %Lymphocytes 21.2 % (21.0-51.0); %Monocytes 12.4 % (0.0-10.0); %Neutrophils 58.9 % (42.0-75.0); Hemoglobin 11.3 g/dL (12.0-16.0); Mean Corpuscular HGB CONC 32.9 g/dL (32.0-36.0); Mean Corpuscular Hemoglobin 31.4 pg (27.0-31.0); Mean Corpuscular Volume 95.4 fL (78.0-98.0); Mean Platelet Volume 8.5 fL (7.4-10.4); Platelet Count 168 thou/uL (130-400); RBC Distribution Width 13.8 % (11.5-14.5); Red Blood Cell (RBC) Count 3.59 mill/uL (4.20-5.40); White Blood Cell (WBC) Count 6.3 thou/uL (4.8-10.8)
[2020-05-06 05:10] LABS: ALT (SGPT) 21 U/L (8-55); AST (SGOT) 21 U/L (5-34); Alkaline Phosphatase 108 U/L (40-110); Anion Gap 11 mmol/L (10-20); BUN (Urea Nitrogen) 24 mg/dL (9.8-20.1); Bilirubin, Total 0.9 mg/dL (0.2-1.2); Calc. Creatinine Clearance 32 mL/min (70-130); Calcium 8.7 mg/dL (7.8-10.44); Carbon Dioxide 26 mmol/L (23-31); Cardiac Risk 2.8 (Less than 4.5); Chloride 104 mmol/L (98-107); Cholesterol 117 mg/dl (< 200 Desired); Estimated GFR-MDRD 50; Globulin 2.8 g/dL (2.4-3.5); Glucose 84 mg/dL (83-110); HDL Cholesterol 42 mg/dL (>60 Neg Risk); LDL Cholesterol, Calculated 62 mg/dL; Potassium 3.4 mmol/L (3.5-5.1); Protein, Total 5.8 g/dL (6.0-8.3); Sodium 138 mmol/L (136-145); Triglycerides 67 mg/dL (Less than 150)
--- NOTE | 2020-05-06 05:48 | HP ---
PRIMARY CARE PHYSICIAN: Dr. Arroyo. CHIEF COMPLAINT: Multiple falls and weakness. HISTORY OF PRESENT ILLNESS: Ms. Parmar is a very pleasant 89-year-old female, who was brought to us via ambulance from the [facility] in [place]. She was brought in for evaluation of multiple falls from her wheelchair to the ground over the last 48 hours. She relates that she is unable to straighten her legs. Initially, she was given some and per the [facility], mentation was at baseline. She does have a history of a stroke in December of this year with some left-sided residual weakness from that stroke. Nurses in the ER report that they talked to the [facility] that she has intermittent episodes of being A and O x4 and then has a complete 180 in her personality and becomes very argumentative and combative and then she will come out of that and become A and O x4 for them. She does have a history of atrial fibrillation, congestive heart failure, GERD, migraines, history of esophageal tear, hypertension, and then this previous CVA. Evaluation in the ER was largely unremarkable. CT scan and x-rays of her hip and pelvis were negative for fractures or dislocation. CBC was unremarkable. Coags; PT was 16.3, INR is 1.3, and APTT is 36.5. The patient is on Eliquis. Chemistry; BUN 30 and creatinine of 1.4. This is a bump from the last value that we have in July of this year when her creatinine was 0.99. Alkaline phosphatase is 138. BNP was 153. Troponin was negative and the rest of her chemistry was unremarkable. She had a pelvis x-ray, hip x-ray, cervical spine CT, brain CT, chest x-ray, and a pelvis CT. Brain CT shows an old infarct but no acute changes. She is going to be admitted to the stroke unit for stroke workup to ensure that the falls that she has been having over the last 2 to 3 days are not caused by any new infarctions. REVIEW OF SYSTEMS: The patient can move all four limbs. She has decreased strength in bilateral legs, more pronounced on the left side where she had from the previous stroke. She denies any complaints. She knows her name and her date. She is A and O for me x1 to person. They did give her fentanyl on the ambulance ride here and then they had to give her some Haldol in the emergency room when she became agitated and tried to get out of the bed, but she is alert and oriented currently. All systems are reviewed and are negative unless mentioned above or in the HPI. PAST MEDICAL HISTORY: Please see HPI. SURGICAL HISTORY: Bilateral knee replacements, hemorrhoidectomy, craniotomy, neurectomy, appendectomy, cholecystectomy, section x2, cardiac ablation in October of 2015, and surgical history of vitrectomy. PSYCHIATRIC HISTORY: Anxiety and depression. SOCIAL HISTORY: Lives in a long-term care facility. Denies any alcohol or drug use. No smoking history. ALLERGIES: CODEINE, DEMEROL, DOXYCYCLINE, HYDRALAZINE, IBUPROFEN, MEPERIDINE, PENICILLINS, SULFA, AND TRIMETHOPRIM. CURRENT MEDICATIONS: This is per the [facility] records; 1. Atorvastatin 40 mg p.o. once a day at bedtime. 2. BuSpar 15 mg p.o. once a day. 3. Cardizem LA 240 mg p.o. once a day. 4. Chlorthalidone 25 mg p.o. once a day before meal. 5. Combigan 0.25%. 6. Eliquis 5 mg p.o. b.i.d. 7. Latanoprost 0.005 one drop both eyes in the evening. 8. Lisinopril 40 mg p.o. once a day. 9. Metoprolol 50 mg p.o. once a day. 10. Nitrostat 0.4 mg sublingual as needed for chest pain. 11. Protonix 40 mg p.o. once a day. 12. Senna with docusate one tab as needed. 13. Tylenol Extra Strength 500 mg, 1 g once a day in the morning. PHYSICAL EXAMINATION: VITAL SIGNS: Blood pressure 161/62, pulse is 65, respiratory rate is 17, temp is 98.4, and PO2 sats are 96% on room air. CONSTITUTIONAL: She is nontoxic appearing. She is alert and oriented x1. HEENT: Head is atraumatic and normocephalic. Eyes, pupils are equally reactive to light. Extraocular muscles are intact. ENT; mouth exam is normal. Mucous membranes are moist. NECK: Normal range of motion. Trachea is midline. RESPIRATORY/CHEST: Breath sounds are clear. Chest is symmetrical. CARDIOVASCULAR: Irregularly irregular. Heart sounds are normal. ABDOMEN: Nontender. Bowel sounds are heard. EXTREMITIES: Upper extremities; she has about 4/5 strength on the right and 3/5 strength on the left. Inspection is normal. Radial pulses are normal. Lower extremity; she has internal rotation of the right leg, but she can straighten it. She can move it and she has about 3/5 strength on the right and about 3/5 on the left. Sensation is intact. NEURO: She is oriented times person. She is pleasantly confused. SKIN: Warm, dry, normal in color. LABORATORY DATA: EKG in the emergency room shows an atrial-paced rhythm with prolonged AV conduction, pulse is 64. She has some left ventricular hypertrophy. ASSESSMENT AND PLAN: 1. Multiple falls, worrisome for new cerebrovascular accident. This seems less likely on Eliquis and a statin, but we will go ahead and order an MRI of the brain without contrast and echocardiogram. Ask PT, OT, and Speech to evaluate. Neuro checks q.4. We will draw fasting lipids and TSH in the morning. 2. She has slight bump in her creatinine and she has not had any urine output while she has been in the ER. We have added a normal saline bag at 75 mL per hour x1 bag. We have ordered a UA and a urine culture to ensure that this is not perchance some of reason she may be falling and weak. 3. History of hypertension. We will restart her home medications. 4. History of a previous stroke, see #1. We will restart her home medications. 5. We will add Case Management for possible rehab. 6. Continue the Protonix for prevention of peptic ulcer disease. The patient is on Eliquis for prevention of deep venous thrombosis. 7. Case discussed with Dr. Solorzano, who agrees with plan. 8. Hospital course dependent on clinical findings. Job ID: [id number]
[2020-05-06] MEDS: OLANZapine 5 MG TAB PO SCH (08:39)
[2020-05-06] MEDS ORDERED: Amlodipine 5 MG TAB PO SCH (09:00)
[2020-05-06] MEDS ORDERED: OLANZapine ODT 5 MG TAB SL SCH (09:00)
[2020-05-06 10:42] LABS: SARS-CoV-2 MS2 Positive; SARS-CoV-2 N Gene Negative; SARS-CoV-2 S Gene Negative; SARS-CoV-2 by NAA Not Detected (NotDetected); SARS-CoV-2 orf1ab Negative
--- NOTE | 2020-05-06 13:27 | CON ---
NEUROLOGY CONSULTATION DATE OF CONSULTATION: 05/06/2020 REASON FOR CONSULTATION: Altered mental status/multiple falls and generalized weakness. HISTORY OF PRESENT ILLNESS: Ms. Parmar is an 89-year-old female with medical history significant for atrial fibrillation, congestive heart failure, GERD, migraines, hypertension, esophageal tear, and prior CVA, was brought by ambulance from the [facility] in [place] because of multiple falls from the wheelchair in the last 24 hours. Unable to provide the history. History is obtained from review of the medical records. [facility] staff, she does have history of stroke in December of this year with residual left-sided weakness. The nurses in the emergency room noted that she has multiple episodes of altered mental status and change in personality during which, she became very argumentative and combative in the emergency room. In the emergency room, head CT was done, which was negative for acute intracranial pathology or bleed. The patient is on Eliquis for atrial fibrillation. She was admitted for stroke workup. The patient's condition has been going on for the last 2 to 3 days and no new infarction was seen on the head CT. REVIEW OF SYSTEMS: Unobtainable. PAST MEDICAL HISTORY: Hypertension, atrial fibrillation, congestive heart failure, GERD, migraines, esophageal tear, prior CVA. PAST SURGICAL HISTORY: Bilateral knee replacement, hemorrhoidectomy, craniotomy, appendectomy, cholecystectomy, sections x2, cardiac ablation in October 2015, history of vitrectomy. PAST PSYCHIATRIC HISTORY: Anxiety and depression. SOCIAL HISTORY: The patient lives in a long-term facility. Denies alcohol or illegal drug use. ALLERGIES: CODEINE, DEMEROL, DOXYCYCLINE, HYDRALAZINE, IBUPROFEN, MEPERIDINE, PENICILLIN, SULFA, AND TRIMETHOPRIM. HOME MEDICATIONS: 1. Atorvastatin 40 mg daily. 2. BuSpar 15 mg once daily. 3. Cardizem LA 240 mg once daily. 4. Chlorthalidone 25 mg once daily before meals. 5. Combigan 6. Eliquis 5 mg p.o. b.i.d. 7. Latanoprost 1 drop each eye in evening. 8. Lisinopril 40 mg daily. 9. Metoprolol 50 mg daily. 10. Nitrostat 0.4 mg sublingual as needed for pain. 11. Protonix 40 mg daily. 12. Senna with docusate 1 tablet as needed. 13. Tylenol Extra Strength 500 mg once daily. PHYSICAL EXAMINATION: VITAL SIGNS: Blood pressure 160/60, pulse 80, respiratory rate 18. CVS: Regular rate and rhythm. CHEST: Clear. ABDOMEN: Soft. NECK: Supple. NEUROLOGIC: Mental status; the patient is alert and oriented to person, but not oriented to place or time. She does not follow commands and gets agitated. Cranial nerves; pupils 4 mm, round and reactive to light. Face symmetric. Tongue midline. Moves neck in both directions. Hearing seems to be intact. Motor; muscle tone and bulk are normal. Moving all 4 extremities. Sensory; withdraws to nailbed pressure bilaterally. Cerebellar; did not cooperate with the testing. Gait deferred due to the patient's safety reason. LABORATORY AND DIAGNOSTIC DATA: Data reviewed. I reviewed the head CT, which was negative for acute intracranial pathology. EKG shows an atrial paced rhythm with prolonged AV conduction. She also has left ventricular hypertrophy. ASSESSMENT AND PLAN: Ms. Ariella Parmar is an 89-year-old female with history significant for hypertension, atrial fibrillation, prior stroke, presented with multiple falls, generalized weakness, and intermittent episodes of confusion in the emergency room. MRI of the brain to rule out acute intracranial process. 2D echocardiogram to evaluate for left ventricular ejection fraction and rule out thrombus. Telemetry. Neuro checks every 4 hours. Continue Eliquis for atrial fibrillation and secondary stroke prevention. Continue high-intensity statin for secondary stroke prevention. Permissive control of blood pressure at this time. Strict control of blood glucose. PT/OT/speech. EEG to rule out intermittent episodes of confusion in the emergency room to rule out cortical irritability. Continue home medications. Continue medical management per primary team, PT/OT/speech. We will continue to follow. Thank you for the consult. Job ID: [id number] [facility]
--- NOTE | 2020-05-06 15:50 | PDOC.EEG ---
Neurology EEG Report - Report Report: This EEG was performed using 24 channel [employer] video digital EEG machine with 24 disc electrodes. This was an extended 2 hours 4 minutes of inpatient video EEG recording. Digital analysis of the EEG was done for Mason and seizure detection which revealed no abnormalities. Background: The posterior background rhythm is 8-8.5 Hz. Minimal reactivity seen with eye opening and closure. Photic stimulation: No response seen with photic stimulation. Hyperventilation: Not performed. Sleep: Drowsiness and sleep observed. EEG diagnosis: Generalized irregular theta activity seen throughout the recording. Nonsustained posterior background rhythm. Clinical interpretation: This EEG is consistent with moderate generalized nonspecific cerebral dysfunction.
--- NOTE | 2020-05-06 17:50 | PDOC.HOSPP ---
- Subjective Encounter Date: 05/06/20 Subjective: Patient was seen this morning on rounds. She denied any complaints at that time. - Objective Vital Signs & Weight: Vital Signs (12 hours) Temp Pulse Resp BP Pulse Ox 05/06/20 16:33 98 F 65 14 151/67 H 97 05/06/20 12:57 169/74 H 05/06/20 11:00 97.6 F 60 13 194/74 H 98 05/06/20 08:16 97.4 F L 69 15 193/78 H 96 Weight Weight 117 lb 4.8 oz I&O: 05/05/20 05/06/20 05/07/20 06:59 06:59 06:59 Output Total 550 Balance -550 Result Diagrams: 05/06/20 04:17 05/06/20 04:17 Hospitalist ROS - Medication Medications: Active Medications Generic Name Dose Route Start Last Admin Trade Name Freq PRN Reason Stop Dose Admin Apixaban 2.5 mg 05/05/20 21:00 05/06/20 08:39 Apixaban 2.5 Mg Tab PO 2.5 mg BID RONAL Administration Atorvastatin Calcium 20 mg 05/05/20 21:00 05/06/20 01:08 Atorvastatin Calcium 20 Mg Tab PO 20 mg HS RONAL Administration Buspirone HCl 5 mg 05/05/20 21:00 05/06/20 08:39 Buspirone Hcl 5 Mg Tab PO 5 mg BID RONAL Administration Metoprolol Succinate 25 mg 05/06/20 09:00 05/06/20 08:44 Metoprolol Succinate Xl 25 Mg Tab PO 25 mg DAILY RONAL Administration Olanzapine 5 mg 05/06/20 09:00 05/06/20 08:39 Olanzapine 5 Mg Tab PO 5 mg DAILY RONAL Administration Pantoprazole Sodium 40 mg 05/06/20 09:00 05/06/20 08:39 Pantoprazole 40 Mg Tab PO 40 mg DAILY RONAL Administration - Exam General Appearance: NAD, awake alert Heart: RRR, no murmur, no gallops, no rubs, normal peripheral pulses Respiratory: CTAB, no wheezes, no rales, no ronchi, normal chest expansion, no tachypnea, normal percussion Gastrointestinal: soft, non-tender, non-distended, normal bowel sounds, no p alpable masses, no hepatomegaly, no splenomegaly Extremities: no cyanosis, no clubbing Skin: normal turgor Neurological: no new deficit Musculoskeletal: generalized weakness Psychiatric: normal affect, not oriented Hosp A/P (1) Prerenal azotemia Code(s): R79.89 - OTHER SPECIFIED ABNORMAL FINDINGS OF BLOOD CHEMISTRY Status: Acute (2) CKD (chronic kidney disease) stage 2, GFR 60-89 ml/min Code(s): N18.2 - CHRONIC KIDNEY DISEASE, STAGE 2 (MILD) Status: Chronic (3) S/P ablation of atrial fibrillation Code(s): Z98.89 - OTHER SPECIFIED POSTPROCEDURAL STATES * DO NOT USE *; Z86.79 - PERSONAL HISTORY OF OTHER DISEASES OF THE CIRCULATORY SYSTEM Status: Chronic (4) Falls frequently Code(s): R29.6 - REPEATED FALLS Status: Acute (5) GERD (gastroesophageal reflux disease) Code(s): K21.9 - GASTRO-ESOPHAGEAL REFLUX DISEASE WITHOUT ESOPHAGITIS Status: Chronic (6) Glaucoma Code(s): H40.9 - UNSPECIFIED GLAUCOMA Status: Chronic (7) History of congestive heart failure Code(s): Z86.79 - PERSONAL HISTORY OF OTHER DISEASES OF THE CIRCULATORY SYSTEM Status: Chronic - Plan Prerenal azotemia: Patient may have a bit of dehydration. Her numbers did improve with hydration. Chronic kidney disease stage II: She is currently back at her baseline GFR. Frequent falls: Appreciate neurology consult. Echocardiogram appears to be fairly good given her history of A. fib and heart failure. Attempting to get an MRI of the head. Working around pacemaker issues. Physical therapy consult. History of atrial fibrillation: Patient had recurrent A. fib and had prior ablations. Ultimately the plan was to not proceed with any further ablations as the patient did not want those but to implant the pacemaker and increase antiarrhythmic meds. Will obtain a pacemaker printout. She is on Eliquis, diltiazem, metoprolol, Multaq. Appears to have good rate control presently. History of congestive heart failure: Patient has fairly normal ejection fraction at the moment although she has some left atrial enlargement and what appears to be cardiomegaly on her chest x-ray. No evidence of acute decompensation.
--- NOTE | 2020-05-06 18:11 | PDOC.EVN ---
Event Note - Event Note Event Note: The patient's son Jean. Updated him on her condition. So far not a lot of significant findings. If all goes well with her MRI and pacemaker printout anticipate discharge as early as tomorrow.
[2020-05-06] MEDS ORDERED: Latanoprost 0.005% Ophth Soln 2.5 ml Bottle EA EYE SCH (21:00)
[2020-05-06] MEDS ORDERED: Atorvastatin Calcium 40 MG TAB PO SCH (21:00)
[2020-05-06] MEDS: Senokot S 8.6-50 MG TAB PO SCH (22:52)
[2020-05-06] MEDS: Metoprolol Tartrate 50 MG TAB PO SCH (22:52)
[2020-05-06] MEDS: Timolol 0.5% Ophth Soln 5 ml Bottle EA EYE SCH (22:53)
[2020-05-06] MEDS: Dronedarone HCl 400 MG TAB PO SCH (22:54)
[2020-05-06] MEDS: Brimonidine Tartrate 0.2% Ophth Soln 5 ml Bottle EA EYE SCH (23:12)
[2020-05-07] MEDS ORDERED: FLU VACC QS2020-21(65YR UP)/PF 240 MCG/0.7 ML SYRINGE IM ONE (08:00)
[2020-05-07] MEDS: Senokot S 8.6-50 MG TAB PO SCH (08:53)
[2020-05-07] MEDS: Dronedarone HCl 400 MG TAB PO SCH (08:54)
[2020-05-07] MEDS: OLANZapine 5 MG TAB PO SCH (08:54)
[2020-05-07] MEDS: busPIRone HCl 5 MG TAB PO SCH (08:54)
[2020-05-07] MEDS: Metoprolol Tartrate 50 MG TAB PO SCH (08:54)
[2020-05-07] MEDS: Apixaban 2.5 MG TAB PO SCH (08:54)
[2020-05-07] MEDS: Timolol 0.5% Ophth Soln 5 ml Bottle EA EYE SCH (08:54)
[2020-05-07] MEDS: Brimonidine Tartrate 0.2% Ophth Soln 5 ml Bottle EA EYE SCH (08:55)
[2020-05-07] MEDS ORDERED: Potassium Chloride 10 MEQ TAB PO SCH (09:00)
[2020-05-07] MEDS ORDERED: Chlorthalidone 25 MG TAB PO SCH (09:00)
[2020-05-07] MEDS ORDERED: Lisinopril 20 MG TAB PO SCH (09:00)
--- NOTE | 2020-05-07 13:41 | PDOC.NEUPN ---
- Subjective Encounter Date: 05/07/20 Subjective: Ms. Parmar is much more awake today. She is oriented to person ,place and also year 2019. She is not oriented to the monthSeptember - Objective Vital Signs & Weight: Vital Signs (12 hours) Temp Pulse Resp BP BP BP Pulse Ox 05/07/20 11:37 97.7 F 60 16 146/66 H 98 05/07/20 10:23 61 165/73 H 05/07/20 08:51 61 193/80 H 05/07/20 07:48 97.5 F L 75 16 188/81 H 97 05/07/20 04:25 97.9 F 60 16 164/71 H 97 Weight Weight 117 lb 4.8 oz I&O: 05/06/20 05/07/20 05/08/20 06:59 06:59 06:59 Intake Total 720 Output Total 550 450 Balance -550 270 Result Diagrams: 05/06/20 04:17 05/06/20 04:17 Radiology Reviewed by me: Yes EKG Reviewed by me: Yes ROS - Review of Systems Constitutional: denies: fever, chills, sweats, weakness, malaise, other Eyes: denies: pain, vision change, conjunctivae inflammation, eyelid inflammation, redness, other ENT: denies: ear pain, ear discharge, nose pain, nose discharge, nose congestion, mouth pain, mouth swelling, throat pain, throat swelling, other Musculoskeletal: denies: neck pain, shoulder pain, arm pain, back pain, hand pain, leg pain, foot pain, other All Systems: All other systems reviewed; all pertinent +/- noted in HPI/Subj - Medication Medications: Active Medications Generic Name Dose Route Start Last Admin Trade Name Freq PRN Reason Stop Dose Admin Apixaban 2.5 mg 05/05/20 21:00 05/07/20 08:54 Apixaban 2.5 Mg Tab PO 2.5 mg BID RONAL Administration Atorvastatin Calcium 40 mg 05/06/20 21:00 05/06/20 22:54 Atorvastatin Calcium 40 Mg Tab PO 40 mg HS RONAL Administration Brimonidine Tartrate 1 drop 05/06/20 21:00 05/07/20 08:55 Brimonidine Tartrate 0.2% Ophth Soln 5 Ml Bottle EA EYE 1 drop BID RONAL Administration Buspirone HCl 5 mg 05/05/20 21:00 05/07/20 08:54 Buspirone Hcl 5 Mg Tab PO 5 mg BID RONAL Administration Chlorthalidone 25 mg 05/07/20 09:00 05/07/20 08:54 Chlorthalidone 25 Mg Tab PO 25 mg DAILY RONAL Administration Diltiazem HCl 240 mg 05/07/20 09:00 05/07/20 08:51 Diltiazem Hcl Cd 240 Mg Capsule PO 240 mg DAILY RONAL Administration Dronedarone 400 mg 05/06/20 21:00 05/07/20 08:54 Dronedarone Hcl 400 Mg Tab PO 400 mg BID RONAL Administration Latanoprost 1 drop 05/06/20 21:00 05/06/20 22:53 Latanoprost 0.005% Ophth Soln 2.5 Ml Bottle EA EYE 1 drop HS RONAL Administration Lisinopril 40 mg 05/07/20 09:00 05/07/20 08:54 Lisinopril 20 Mg Tab PO 40 mg DAILY RONAL Administration Metoprolol Tartrate 50 mg 05/06/20 21:00 05/07/20 08:54 Metoprolol Tartrate 50 Mg Tab PO 50 mg BID RONAL Administration Olanzapine 5 mg 05/06/20 09:00 05/07/20 08:54 Olanzapine 5 Mg Tab PO 5 mg DAILY RONAL Administration Pantoprazole Sodium 40 mg 05/06/20 09:00 05/07/20 08:54 Pantoprazole 40 Mg Tab PO 40 mg DAILY RONAL Administration Potassium Chloride 10 meq 05/07/20 09:00 05/07/20 08:51 Potassium Chloride 10 Meq Tab PO 10 meq DAILY RONAL Administration Senna/Docusate Sodium 1 tab 05/06/20 21:00 05/07/20 08:53 Senokot S 8.6-50 Mg Tab PO 1 tab BID RONAL Administration Timolol Maleate 1 drop 05/06/20 21:00 05/07/20 08:54 Timolol 0.5% Ophth Soln 5 Ml Bottle EA EYE 1 drop BID RONAL Administration - Exam General Appearance: awake alert Eye: PERRL ENT: normocephalic atraumatic Neck: supple Respiratory: CTAB Cardiovascular: RRR Gastrointestinal: soft Extremities: no cyanosis Skin: normal turgor Neurological: no new deficit Musculoskeletal: no muscle wasting PSYCH: normal affect, normal behavior, oriented to person, oriented to place, oriented to time Results - Labs Result Diagrams: 05/06/20 04:17 05/06/20 04:17 Lab results: WBC 6.3 thou/uL (4.8-10.8) 05/06/20 04:17 Hgb 11.3 g/dL (12.0-16.0) L 05/06/20 04:17 Hct 34.2 % (36.0-47.0) L 05/06/20 04:17 MCV 95.4 fL (78.0-98.0) 05/06/20 04:17 Plt Count 168 thou/uL (130-400) 05/06/20 04:17 Neutrophils % 58.9 % (42.0-75.0) 05/06/20 04:17 Sodium 138 mmol/L (136-145) 05/06/20 04:17 Potassium 3.4 mmol/L (3.5-5.1) L 05/06/20 04:17 Chloride 104 mmol/L (98-107) 05/06/20 04:17 Carbon Dioxide 26 mmol/L (23-31) 05/06/20 04:17 BUN 24 mg/dL (9.8-20.1) H 05/06/20 04:17 Creatinine 1.05 mg/dL (0.6-1.1) 05/06/20 04:17 Glucose 84 mg/dL (83-110) 05/06/20 04:17 Calcium 8.7 mg/dL (7.8-10.44) 05/06/20 04:17 Total Bilirubin 0.9 mg/dL (0.2-1.2) 05/06/20 04:17 AST 21 U/L (5-34) 05/06/20 04:17 ALT 21 U/L (8-55) 05/06/20 04:17 Alkaline Phosphatase 108 U/L (40-110) 05/06/20 04:17 Creatine Kinase 99 U/L (29-168) 05/05/20 12:33 Troponin I 0.016 ng/mL (< 0.028) 05/05/20 12:33 B-Natriuretic Peptide 153.4 pg/mL (0-100) H 05/05/20 12:33 Serum Total Protein 5.8 g/dL (6.0-8.3) L 05/06/20 04:17 Albumin 3.0 g/dL (3.4-4.8) L 05/06/20 04:17 Lipase 44 U/L (8-78) 05/05/20 12:33 Urine Ketones Negative mg/dL (Negative) 05/05/20 20:12 Urine Blood Negative (Negative) 05/05/20 20:12 Urine Nitrite Negative (Negative) 05/05/20 20:12 Ur Leukocyte Esterase 250 Carl/uL (Negative) A 05/05/20 20:12 Urine RBC 0-3 HPF (0-3) 05/05/20 20:12 Urine WBC 7-10 HPF (0-3) A 05/05/20 20:12 Ur Squamous Epith Cells 7-10 HPF (0-3) A 05/05/20 20:12 Urine Bacteria 1+ HPF (None Seen) A 05/05/20 20:12 PN A/P - Plan Daily Plan: PT/OT, speech therapy, DVT proph w/SCDs Ms. Lauren Olmedo is a 89-year-old female with history significant for hypertension, hyperlipidemia , chronic kidney disease stage II, atrial fibrillation status post pacemaker placement presented with altered mental status and multiple falls. Patient is now back to the baseline. Initial head CT negative for seizure activity. EEG reviewed which was negative for seizure activity. Unable to perform MRI brain because of pacemaker. Repeat head CT today which should be positive for now if there is no acute intracranial process since is more than 48 hours for symptom onset. 2D echo showed left ventricle ejection fraction 55%. No thrombus or PFO. Neurochecks every 4 hours. Continue Eliquis and high intensity statin for secondary stroke prevention. Continue Eliquis for atrial fibrillation. Monitor blood pressure and blood glucose Continue home medications Continue medical management per primary team PT/OT/speech. Plan discussed during MDR rounds and also with the patient.
--- NOTE | 2020-05-07 14:06 | CT ---
CT BRAIN WITHOUT CONTRAST: 05/07/20 HISTORY: Follow-up CVA. COMPARISON: 05/05/20 FINDINGS: Changes of cortical atrophy and chronic small vessel ischemic disease again seen. The ventricular siz e is stable and the basilar cisterns patent. 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 No acute transcortical infarct, hemorrhage, midline shift or abnormal extra-axial fluid collections are noted. No depressed calvaria l fracture identified. IMPRESSION: Stable exam since 05/05/20. POS: AH
[2020-05-07 15:51] VITALS: BP 153/67; TEMP 98.4
--- NOTE | 2020-05-07 19:09 | PDOC.DS.DS ---
Provider - Provider Date of Admission: 05/05/20 15:10 Admitting Provider: Forrest Solorzano MD Primary Care Physician: Rosanna Arroyo MD Course - Hospital Course Hospital Course: Patient is a 89-year-old female who presented to the emergency department after having some falls from her wheelchair. She was noted to have some acute kidney injury. Appear to be due to some prerenal azotemia on top of chronic kidney disease stage II. Prerenal azotemia: Patient may have a bit of dehydration. Her numbers did improve with hydration. Chronic kidney disease stage II: She is currently back at her baseline GFR. Frequent falls: Neurology consult obtained. Negative EEG. Echocardiogram appears to be fairly good given her history of A. fib and heart failure. Unable to get the MRI of the head due to pacemaker issues. Repeat CT scan did not show any evidence of acute infarcts. History of atrial fibrillation: Patient had recurrent A. fib and had prior ablations. Ultimately the plan was to not proceed with any further ablations as the patient did not want those but to implant the pacemaker and increase antiarrhythmic meds. Will obtain a pacemaker printout. She is on Eliquis, diltiazem, metoprolol, Multaq. Appears to have good rate control presently. History of congestive heart failure: Patient has fairly normal ejection fraction at the moment although she has some left atrial enlargement and what appears to be cardiomegaly on her chest x-ray. No evidence of acute decompensation. Resuscitation Status: 05/05/20 15:53 Resuscitation Status Routine Co-Sign Provider: Resuscitation Status: FULL: Full Resuscitation Discussed with: patient - Labs Lab Results: 05/06/20 04:17 05/06/20 04:17 Abnormal Lab Results - Last 48 hrs 05/05/20 20:12: Urine Clarity Turbid A, Ur Leukocyte Esterase 250 A, Urine WBC 7-10 A, Ur Squamous Epith Cells 7-10 A, Urine Bacteria 1+ A 05/06/20 04:17: Potassium 3.4 L, BUN 24 H, Serum Total Protein 5.8 L, Albumin 3.0 L, Albumin/Globulin Ratio 1.1 L 05/06/20 04:17: RBC 3.59 L, Hgb 11.3 L, Hct 34.2 L, MCH 31.4 H, Monocytes % 12.4 H, Monocytes # 0.8 H Microbiology - Entire Visit 05/06/20 01:20 Urine clean catch Urine Culture - Preliminary Presumptive Escherichia coli - Physical Exam Vitals: Vital Signs (12 hours) Temp Pulse Pulse Pulse Resp BP BP 05/07/20 15:44 98.4 F 64 16 05/07/20 14:22 65 150/68 H 05/07/20 13:22 61 60 150/68 H 05/07/20 11:37 97.7 F 60 16 05/07/20 10:23 61 05/07/20 08:51 61 193/80 H 05/07/20 07:48 97.5 F L 75 16 BP BP BP Pulse Ox 05/07/20 15:44 153/67 H 98 05/07/20 14:22 05/07/20 13:22 131/60 05/07/20 11:37 146/66 H 98 05/07/20 10:23 165/73 H 05/07/20 08:51 05/07/20 07:48 188/81 H 97 Weight Weight 117 lb 4.8 oz Physical Exam: The patient was seen and examined on the day of discharge. Problem - Problem (1) Prerenal azotemia Code(s): R79.89 - OTHER SPECIFIED ABNORMAL FINDINGS OF BLOOD CHEMISTRY Status: Acute (2) CKD (chronic kidney disease) stage 2, GFR 60-89 ml/min Code(s): N18.2 - CHRONIC KIDNEY DISEASE, STAGE 2 (MILD) Status: Chronic (3) S/P ablation of atrial fibrillation Code(s): Z98.89 - OTHER SPECIFIED POSTPROCEDURAL STATES * DO NOT USE *; Z86.79 - PERSONAL HISTORY OF OTHER DISEASES OF THE CIRCULATORY SYSTEM Status: Chronic (4) Falls frequently Code(s): R29.6 - REPEATED FALLS Status: Acute (5) GERD (gastroesophageal reflux disease) Code(s): K21.9 - GASTRO-ESOPHAGEAL REFLUX DISEASE WITHOUT ESOPHAGITIS Status: Chronic (6) Glaucoma Code(s): H40.9 - UNSPECIFIED GLAUCOMA Status: Chronic (7) History of congestive heart failure Code(s): Z86.79 - PERSONAL HISTORY OF OTHER DISEASES OF THE CIRCULATORY SYSTEM Status: Chronic - Time spent with Patient (mins): 35 Plan - Discharge Medications Home Medications: Medication Instructions Recorded Confirmed Type Pantoprazole [Protonix] 40 mg PO DAILY 02/24/14 05/06/20 History busPIRone HCl [Buspirone HCl] 10 mg PO BID 02/24/14 05/06/20 History Potassium Chloride 10 meq PO DAILY 04/19/17 05/06/20 History Apixaban [Eliquis] 2.5 mg PO BID tab 04/22/17 05/06/20 Rx Acetaminophen [Tylenol Regular 500 mg PO Q4H PRN 05/06/20 05/06/20 History Strength] Atorvastatin Calcium [Lipitor] 40 mg PO HS 05/06/20 05/06/20 History Brimonidine Tartrate/Timolol 1 drop EA EYE BID 05/06/20 05/06/20 History [Combigan 0.2%-0.5% Eye Drops] Chlorthalidone 25 mg PO DAILY 05/06/20 05/06/20 History Diltiazem HCl [Diltiazem ER] 240 mg PO DAILY 05/06/20 05/06/20 History Dronedarone HCl [Multaq] 400 mg PO BID 05/06/20 05/06/20 History Latanoprost/Pf [Latanoprost 0.005% 1 drop EA EYE HS 05/06/20 05/06/20 History Eye Drop] Lisinopril 40 mg PO DAILY 05/06/20 05/06/20 History Metoprolol Tartrate 50 mg PO BID 05/06/20 05/06/20 History Sennosides/Docusate Sodium 1 each PO BID 05/06/20 05/06/20 History [Senna-Docusate Sodium Tablet] Allergies: amlodipine Allergy (Verified 05/06/20 08:26) aspirin Allergy (Verified 05/06/20 08:26) codeine Allergy (Verified 05/06/20 08:27) DOCUMENTED ON ER MEDICATION SERVICE ORDERS 06/02/13 @0136 DR COLLEEN JOHNSON doxycycline Allergy (Verified 05/06/20 08:27) ibuprofen [From Motrin] Allergy (Verified 05/06/20 08:27) meperidine HCl [From Demerol] Allergy (Verified 05/06/20 08:27) PER PATIENT NSAIDS (Non-Steroidal Anti-Inflamma Allergy (Verified 05/06/20 08:27) Penicillins Allergy (Verified 05/06/20 08:27) Sulfa (Sulfonamide Antibiotics) Allergy (Verified 05/06/20 08:27) sulfamethoxazole [From Bactrim] Allergy (Verified 05/06/20 08:27) triamterene Allergy (Verified 05/06/20 08:27) trimethoprim [From Bactrim] Allergy (Verified 05/06/20 08:27) hydralazine Allergy (Uncoded 05/06/20 08:27) - Discharge Instructions Activity:: Activity as Tolerated Nourishment:: No Restrictions - Follow up Plan Referrals: Barbie Aguilera [Outside] Rosanna Arroyo MD [Primary Care Provider] - 7 Days Disposition: HALFWAY/ASSISTED LIVING Quality - Care Measures CORE MEASURES:: N/A
--- NOTE | 2020-05-09 04:06 | PQF ---
CLINICAL DOCUMENTATION CLARIFICATION FORM: Dear : Derek Richter Date / Time: 05/09/2020 1137 Please exercise your independent, professional judgment in responding to the clarification form. Clinical indicators are provided on the bottom of this form for your review Please check appropriate box(es): [ ] Encephalopathy: Etiology: [ ] Metabolic [ ] Toxic [ ] Unspecified [ ] Other (please specify) [ ] Transient Alteration of Awareness [ ] Other diagnosis [ x ] Unable to determine In addition, please specify: Present on Admission (POA): [ ] Yes [ ] No [ ] Unable to determine Physician Signature: Date/Time: For continuity of documentation, please document condition throughout progress notes and discharge summary. Thank You. To be completed by CDI/Coding staff for physician review: Present Clinical Indicators - Signs / Symptoms / Labs Results and Location in Medical Record [X] BUN 30, Creatinine 1.40, GFR 36, Potassium 3.4 Laboratory 05/05 [X] BP 171/74, Pulse 68, Resp 20, temp 97.5 Vital signs 05/05 [X] she has intermittent episodes of being A and Ox4 and then she has complete 180 in her personality H&P p1 05/05 [employer] [X] has bump in her creatinine H&P p1 05/05 [employer] [X] She is pleasantly confused H&P p305/05 [employer] [X] CT of brain: lacunar infarction left thalamus of indeterminate age CT of brain 05/05 [X] she became agitated and tried to get of the bed H&P p1 05/05 [employer] [X] Altered mental status/multiple falls and generalized weakness Consult 05/06 [X] she became very argumentative and combative in the ER Consult 05/06 Present Risk Factors Results and Location in Medical Record [X] 89 year-old Female H&P p1 05/05 [employer] [X] Hx of CVA with left sided residual weakness H&P p1 05/05 [employer] [X] Afib H&P p1 05/05 [employer] [X] CKD H&P p1 05/05 [employer] [X] CHF H&P p1 05/05 [employer] [X] HTN H&P p1 05/05 [employer] [X] DANIEL DS p1 05/07 Dr Richter Present Treatments Results and Location in Medical Record [X] IVF NS 1L SEP 18 [X] Potassium Chloride 10 meq oral SEP 18 [X] CT brain 05/[address] Mendez 05/05 [X] EEG Procedure Dr Kapser 05/06 [X] Neuro Consult Consult Dr Kasper 05/06 [X] Neuro check 4q H&P p305/05 [employer] 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
== END 2020-05-07 19:27 | DRG 683 ==
LOC: ERS 12:11 → ERHOLD 15:10 → 2SE 20:35
PROVIDERS: ADMIT Student in an Organized Health Care Education/Training Program; ATTEND Internal Medicine
PROC: 3E0234Z Introduction of Serum, Toxoid and Vaccine into Muscle, Percutaneous Approach (ICD-10-PCS; principal; 2020-05-07)
DX: N17.9 Acute kidney failure, unspecified (principal); I69.354 Hemiplegia and hemiparesis following cerebral infarction affecting left non-dominant side; I13.0 Hypertensive heart and chronic kidney disease with heart failure and stage 1 through stage 4 chronic kidney disease, or unspecified chronic kidney disease; N18.2 Chronic kidney disease, stage 2 (mild); E86.0 Dehydration; Z20.828 Contact with and (suspected) exposure to other viral communicable diseases; R29.6 Repeated falls; K21.9 Gastro-esophageal reflux disease without esophagitis; H40.9 Unspecified glaucoma; I48.91 Unspecified atrial fibrillation; I50.9 Heart failure, unspecified; G43.909 Migraine, unspecified, not intractable, without status migrainosus; Z96.653 Presence of artificial knee joint, bilateral; F41.9 Anxiety disorder, unspecified; F32.9 Major depressive disorder, single episode, unspecified; Z23 Encounter for immunization; Z95.0 Presence of cardiac pacemaker; Z90.49 Acquired absence of other specified parts of digestive tract; Z88.6 Allergy status to analgesic agent; Z88.0 Allergy status to penicillin; Z88.2 Allergy status to sulfonamides; Z88.8 Allergy status to other drugs, medicaments and biological substances; Z79.899 Other long term (current) drug therapy; Z79.01 Long term (current) use of anticoagulants
CPT/HCPCS: 36415; 70450; 71045; 72125; 72170; 72192; 80053; 80061; 81015; 82550; 83690; 83880; 84443; 84484; 85025; 85610; 85730; 86850; 86900; 86901; 87077; 87086; 87186; 87635; 90471; 90732; 93005; 93306; 95712; 95819; 95957; 96374; 96375; G0009; J1630; J2270; J2405; U0003